=== PATIENT | female | born 1970 | race Two or more races ===

== ENCOUNTER 2018-12-13 07:30 | Outpatient (CLI) | payer OTHER ==
[~2018-12-13 07:30] MED LIST: ADVIL100 M1
== END 2018-12-13 07:36 | disposition home or self-care (01) ==
LOC: MAMO-SONO 07:30
DX: N64.4 Mastodynia (principal); Z12.31 Encounter for screening mammogram for malignant neoplasm of breast; N60.11 Diffuse cystic mastopathy of right breast

== ENCOUNTER 2019-12-30 07:39 | Outpatient (CLI) | payer OTHER | END 2019-12-30 07:59 | disposition home or self-care (01) | LOC: MAMO-SONO 07:39 | PROVIDERS: ATTEND Obstetrics & Gynecology Maternal & Fetal Medicine | DX: Z12.31 Encounter for screening mammogram for malignant neoplasm of breast (principal); N64.4 Mastodynia; N60.11 Diffuse cystic mastopathy of right breast ==

== ENCOUNTER 2021-11-29 08:41 | Outpatient (CLI) | payer OTHER | END 2021-11-29 08:42 | disposition home or self-care (01) | LOC: MAMO-SONO 08:41 | PROVIDERS: ATTEND Obstetrics & Gynecology Maternal & Fetal Medicine | DX: Z12.31 Encounter for screening mammogram for malignant neoplasm of breast (principal); N63.0 Unspecified lump in unspecified breast; N64.4 Mastodynia; N60.11 Diffuse cystic mastopathy of right breast ==

== ENCOUNTER 2022-06-16 09:32 | Emergency (ER) | payer OTHER ==
[~2022-06-16] VITALS: Ht 157.5 cm; Wt 61.7 kg
== END 2022-06-16 11:03 | disposition home or self-care (01) ==
LOC: ER 09:32
DX: B34.9 Viral infection, unspecified (principal); Z20.822 Contact with and (suspected) exposure to COVID-19

== ENCOUNTER 2022-08-05 08:27 | Outpatient (CLI) | payer OTHER ==
[2022-08-05] MEDS ORDERED: SEROQUEL300 MG PO (10:14)
[2022-08-05] MEDS ORDERED: LAMICTAL100 M1 PO (10:15)
[2022-08-05] MEDS ORDERED: TRAZO PO (10:15)
[2022-08-05] MEDS ORDERED: TOPROL XL25 M1 PO (10:16)
[2022-08-05] MEDS ORDERED: LIPIT PO (10:16)
[2022-08-05] MEDS ORDERED: PROSOM PO (10:16)
[2022-08-05] MEDS ORDERED: METFORMIN PO (10:17)
== END 2022-08-05 08:28 | disposition home or self-care (01) ==
LOC: LAB 08:27
PROVIDERS: ATTEND Family Medicine
DX: A90 Dengue fever [classical dengue] (principal)

== ENCOUNTER 2022-08-19 05:06 | Day surgery (SDC) | payer OTHER ==
[~2022-08-19] VITALS: Ht 157.5 cm; Wt 65.8 kg
[~2022-08-19 05:06] MED LIST changes: +LAMICTAL100 M1 PO; +LIPIT PO; +METFORMIN PO; +PROSOM PO; +SEROQUEL300 MG PO; +TOPROL XL25 M1 PO; +TRAZO PO
== END 2022-08-20 02:30 | disposition home or self-care (01) ==
LOC: CIR.AMB 05:06
PROVIDERS: ATTEND Surgery
DX: N60.92 Unspecified benign mammary dysplasia of left breast (principal); N60.22 Fibroadenosis of left breast; N60.02 Solitary cyst of left breast; R92.1 Mammographic calcification found on diagnostic imaging of breast; F17.210 Nicotine dependence, cigarettes, uncomplicated

== ENCOUNTER 2023-04-13 13:43 | Outpatient (CLI) | payer OTHER | END 2023-04-13 13:59 | disposition home or self-care (01) | LOC: RAD 13:43 | PROVIDERS: ATTEND Surgery | DX: N60.82 Other benign mammary dysplasias of left breast (principal); N60.11 Diffuse cystic mastopathy of right breast; N60.12 Diffuse cystic mastopathy of left breast; M54.2 Cervicalgia ==

== ENCOUNTER 2023-08-22 10:17 | Outpatient (CLI) | payer OTHER | END 2023-08-22 10:25 | disposition home or self-care (01) | LOC: MAMO-SONO 10:17 | PROVIDERS: ATTEND Surgery | DX: N60.11 Diffuse cystic mastopathy of right breast (principal); N60.12 Diffuse cystic mastopathy of left breast ==

== ENCOUNTER 2024-03-27 08:24 | Outpatient (CLI) | payer OTHER | END 2024-03-27 08:36 | disposition home or self-care (01) | LOC: MAMO-SONO 08:24 | PROVIDERS: ATTEND Surgery | DX: N60.11 Diffuse cystic mastopathy of right breast (principal); N60.12 Diffuse cystic mastopathy of left breast ==

== ENCOUNTER 2024-07-30 13:28 | Outpatient (CLI) | payer OTHER | END 2024-07-30 13:40 | disposition home or self-care (01) | LOC: RAD 13:28 | PROVIDERS: ATTEND Family Medicine | DX: S80.01XA Contusion of right knee, initial encounter (principal) ==

== ENCOUNTER 2024-11-19 07:07 | Outpatient (CLI) | payer OTHER | END 2024-11-19 07:16 | disposition home or self-care (01) | LOC: RAD 07:07 | PROVIDERS: ATTEND Internal Medicine Gastroenterology | DX: K59.00 Constipation, unspecified (principal) ==

== ENCOUNTER 2025-01-21 07:08 | Outpatient (CLI) | payer OTHER | END 2025-01-21 07:12 | disposition home or self-care (01) | LOC: MAMO-SONO 07:08 | PROVIDERS: ATTEND Surgery | DX: N60.11 Diffuse cystic mastopathy of right breast (principal); N60.12 Diffuse cystic mastopathy of left breast; Z12.31 Encounter for screening mammogram for malignant neoplasm of breast ==